=== PATIENT | male | born 1980 | race Caucasian/White ===

== ENCOUNTER 2017-11-16 17:32 | Observation (INO) ==
[2017-11-16 18:13] LABS: Basophils % 0.5 %; Eosinophils # 0.2 K/mcL (0.0-0.6); Eosinophils % 2.2 %; Hemoglobin 13.7 g/dL (12.9-16.9); Immature Granulocytes % 0.3 % (0-4); Lymphocytes # 2.1 K/mcL (0.6-4.6); Lymphocytes % 28.9 %; Mean Corpuscular HGB Conc 33.4 g/dL (31.6-35.5); Mean Corpuscular Hemoglobin 28.7 pg (28.0-33.3); Mean Platelet Volume 9.1 fL (9.4-12.4); Monocytes # 0.7 K/mcL (0.0-1.3); Monocytes % 9.3 %; Neutrophils # 4.4 K/mcL (1.6-8.9); Platelet Count 248 K/mcL (140-400); Red Blood Count 4.77 M/mcL (4.19-5.50); Red Cell Distribution Width 12.3 % (11.5-14.5); Segmented Neutrophils % 58.8 %
[2017-11-16 18:31] LABS: BUN/Creatinine Ratio 12 (6-26); Blood Urea Nitrogen 9 mg/dL (6-20); Calcium 9.3 mg/dL (8.6-10.3); Carbon Dioxide 26 mEq/L (23-29); Chloride 95 mEq/L (98-107); Glucose 102 mg/dL (70-105); Osmolality,Calculated 265 (280-300); Potassium 4.1 mEq/L (3.5-5.1); Sodium 128 mEq/L (136-145); eGFR For African Americans > 60 (> 60); eGFR For Non-African Americans > 60 (> 60)
--- NOTE | 2017-11-16 19:36 | Emergency Department Note ---
Disposition Clinical Impression: Near syncope Disposition: Admitted As Inpatient Condition: Good Referrals: Alina Liang MD [Primary Care Provider] - Forms: ED Satisfaction Letter, Work/School Release Time of Disposition: 19:42 General Adult HPI - General Chief complaint: ED General Medical Stated complaint: "woozy", numb/tingling extremities Time Seen by Provider: 11/16/17 19:21 Source: patient Limitations: no limitations Nursing Notes Reviewed: Yes - History of Present Illness HPI Narrative: 37-year-old male who comes in complaining of near-syncope. This is his third visit in [address] scan that was negative. I was told that he was dehydrated and was drinking lots of fluids. Denies any vomiting or diarrhea. He states he didn't know that he was dehydrated previously. Today he has near- syncope with some tingling in his arms. Pt Subjective Complaint: Near syncope tingling arms Onset (ago): day(s) Radiation: non-radiation Pain Severity: moderate Pain Scale: 2 Quality: aching Consistency: constant Associated symptoms: Reports: syncope (Near) - Related Data Previous Rx's Medication Instructions Recorded Ondansetron [Zofran] 4 mg PO Q8HR #10 tablet 12/30/15 Allergies Allergy/AdvReac Type Severity Reaction Status Date / Time methylprednisolone Allergy See Verified 11/16/17 17:43 Comments Nickel Allergy See Verified 11/16/17 17:43 Comments All systems ED: reviewed and negative except as stated. Constitutional: Denies: fever, chills, weakness, weight change Eyes: Denies: eye pain, eye discharge, vision change ENT ED: Denies: ear pain, throat pain, dental pain, hearing loss, epistaxis, congestion, dysphagia Cardiovascular: Reports: other (Lightheaded). Denies: chest pain, palpitations , dyspnea on exertion, edema, syncope Respiratory: Denies: cough, dyspnea, wheezes, hemoptysis, stridor Gastrointestinal: Denies: abdominal pain, nausea, vomiting, diarrhea, constipation, hematemesis, melena, hematochezia Genitourinary: Denies: urgency, dysuria, frequency, hematuria Musculoskeletal: Denies: back pain, neck pain, arthralgia, myalgia Integumentary: Denies: rash, abrasion, lesions Neurological: Reports: other (Near syncope). Denies: headache, weakness, numbness, paresthesias, confusion, abnormal gait, vertigo Psychiatric: Denies: anxiety, depression, suicidal thoughts, homicidal thoughts , auditory hallucinations, visual hallucinations Endocrine: Denies: fatigue Hematological/Lymphatic: Denies: easy bleeding, easy bruising Allergic/Immunologic: Denies: facial swelling, urticaria Past Medical History - Past Medical History Medical history: Reports: no medical history Psychiatric history: Reports: no psych history - Social History Smoking Status: Never smoker Smokeless Tobacco Status: No Alcohol use: Reports: none Drug use: Reports: none Physical Exam - General Limitations: no limitations General appearance: alert, in no apparent distress - Head Head exam: atraumatic, normocephalic, normal inspection - Eye Eye exam: Present: normal appearance, PERRL, EOMI - ENT ENT exam: normal exam, normal oropharynx, mucous membranes moist - Neck Neck exam: Present: normal inspection, full ROM, trachea midline - Chest Chest inspection: Present: normal inspection, symmetric chest wall rise - Respiratory Respiratory exam: Present: normal lung sounds bilaterally - Cardiovascular Cardiovascular exam: Present: regular rate, normal rhythm, normal heart sounds - Abdominal Exam Abdominal exam: Present: soft, Non-Tender. Absent: tenderness, distention, guarding, rebound, rigidity - Extremities Exam Extremities exam: Present: normal inspection, full ROM. Absent: tenderness, pedal edema - Expanded Lower Extremity Exam Neurovascular/Tendon exam: Absent: motor deficit, sensory deficit, tendon deficit Gait: observed and normal - Back Exam Back exam: Present: normal inspection, full ROM. Absent: tenderness - Neurological Exam Neurological exam: Present: alert, oriented X3 - Psychiatric Psychiatric exam: Present: normal affect, normal mood - Skin Skin exam: Present: warm, dry, intact Course - Reevaluation(s) Reevaluation #1: 37-year-old with his third visit for similar complaints of near syncope and syncope. He said some tingling in his arms. NIH stroke score is 0. CT scan previously was negative. He does show some hyponatremia. The hyponatremia may be related to hydration that he has been doing since he was told that he was dehydrated. We will admit for further evaluation. Time: 19:41 - Consultations Consultation #1: Discussed with , admit. Time: 19:41 Vital Signs Temperature 98.6 F 11/16/17 17:39 Pulse Rate 76 11/16/17 17:39 Respiratory Rate 16 11/16/17 17:39 Blood Pressure 147/93 11/16/17 17:39 O2 Sat by Pulse Oximetry 100 11/16/17 17:39 Temperature 98.6 F 11/16/17 17:39 Pulse Rate 84 11/16/17 19:50 Respiratory Rate 16 11/16/17 19:50 Blood Pressure 153/93 11/16/17 19:50 O2 Sat by Pulse Oximetry 99 11/16/17 19:50 Oxygen Delivery Oxygen Delivery Room Air Medical Decision Making - Lab Data Lab results reviewed: Yes I reviewed the patient's lab results. Result diagrams: 11/16/17 18:05 11/16/17 18:05 Lab Results 11/16/17 11/16/17 11/16/17 Range/Units 18:05 18:05 18:05 WBC 7.4 (4.3-11.1) K/mcL RBC 4.77 (4.19-5.50) M/mcL Hgb 13.7 (12.9-16.9) g/dL Hct 41.0 (37.5-50.1) % MCV 86.0 (83.0-100.0) fL MCH 28.7 (28.0-33.3) pg MCHC 33.4 (31.6-35.5) g/dL RDW 12.3 (11.5-14.5) % Plt Count 248 (140-400) K/mcL MPV 9.1 L (9.4-12.4) fL Immature Gran % 0.3 (0-4) % Seg Neutrophils % 58.8 % Lymphocytes % 28.9 % Monocytes % 9.3 % Eosinophils % 2.2 % Basophils % 0.5 % Neutrophils # 4.4 (1.6-8.9) K/mcL Lymphocytes # 2.1 (0.6-4.6) K/mcL Monocytes # 0.7 (0.0-1.3) K/mcL Eosinophils # 0.2 (0.0-0.6) K/mcL Basophils # 0.0 (0.0-0.2) K/mcL Sodium 128 L (136-145) mEq/L Potassium 4.1 (3.5-5.1) mEq/L Chloride 95 L (98-107) mEq/L Carbon Dioxide 26 (23-29) mEq/L BUN 9 (6-20) mg/dL Creatinine 0.75 (0.70-1.30) mg/dL Est GFR ( Amer) > 60 (> 60) Est GFR (Non-Af Amer) > 60 (> 60) BUN/Creatinine Ratio 12 (6-26) Glucose 102 (70-105) mg/dL Calculated Osmolality 265 L (280-300) Calcium 9.3 (8.6-10.3) mg/dL Troponin I < 0.03 (< 0.04) ng/mL - EKG Data EKG #1 EKG attestation: Yes I reviewed and interpreted this EKG. EKG shows normal: sinus rhythm Rate: normal Rhythm: NSR Interpretation: no acute changes
[2017-11-16 20:00] LABS: Amphetamine Screen,Urine Negative ng/mL (Cutoff=1000); Barbiturate Screen,Urine Negative ng/mL (Cutoff=200); Benzodiazepines Screen,Urine Negative ng/mL (Cutoff=200); Cannabinoid Screen,Urine Negative ng/mL (Cutoff = 50); Cocaine Screen,Urine Negative ng/mL (Cutoff= 300); Opiate Screen,Urine Negative ng/mL (Cutoff=300); Phencyclidine Screen,Urine Negative ng/mL (Cutoff=25)
[2017-11-16 20:00] LABS: Albumin 4.5 g/dL (3.5-5.7); Bilirubin,Direct 0.1 mg/dL (0.0-0.2)
[2017-11-16 20:06] LABS: Albumin/Globulin Ratio 2.3 (1.1-2.2); Total Protein 6.5 g/dL (6.4-8.9)
[2017-11-16 20:20] LABS: Bilirubin,Indirect 0.6 mg/dL (0.0-1.2); Bilirubin,Total 0.7 mg/dL (0.3-1.0)
[2017-11-16] MEDS ORDERED: Ondansetron 4 MG/2 ML VIAL IVP PRN (22:04)
[2017-11-16] MEDS ORDERED: Acetaminophen 325 MG TABLET PO PRN (22:04)
[2017-11-16] MEDS ORDERED: Naloxone 0.4 MG/ML INJ IVP PRN (22:04)
--- NOTE | 2017-11-16 23:39 | Internal Med History&Physical ---
Date of Encounter: 11/16/17 Time of Encounter: 20:00 Assessment and Plan (1) Syncope Current visit: Yes Status: Acute 1. Will monitor glucose for hypoglycemia, telemetry, serial troponins, and EKG' s. 2. Will order ECHO and Carotid Dopplers. 3. Further work-up if necessary, pending observation and above studies. Qualifiers: Syncope type: unspecified Qualified Code(s): R55 - Syncope and collapse (2) Hyponatremia Current visit: Yes Status: Acute 1. Likely due to polydipsia from excessive water intake (patient advised to drink plenty of fluids at last ER visits). 2. Recheck sodium level tonight and in morning. 3. Patient appears well hydrated. I advised him to drink normal fluids and not to push excessive water. May drink fluids with electrolytes. Based upon history, I do not suspect psychogenic polydipsia. Will monitor. (3) DVT prophylaxis Current visit: Yes Status: Acute 1. Heparin SQ. Internal Medicine - H&P: HPI Chief complaint: syncope Admitted From: Emergency Dept Plans for Post Hospital Care: Home History of present illness: Mr. Harrison is a 37 year old male who presents with complaints of 3 different episodes of syncope and near syncope in the last 3 days. He had a true syncopal event 3 days ago while at home. He was walking to the bathroom from his bedroom when he became lightheaded and dizzy and passed out. He came to ER and was evaluated and discharged home. Has felt that he was dehydrated and, and he was advised to drink plenty of fluids. Since then, he has had 2 more episodes where he had near syncopal events, but he did not formally pass out. Because of the recurrent episodes, he came to ER for evaluation. In the ER, evaluation was negative except for some hyponatremia. Because of 3 separate events within the last 3 days, he was admitted to the hospitalist service. Upon my assessment of the patient, he feels well and denies any complaints at the present time. His mother is present at bedside as well. He admits that he was drinking excessive water the last few days as advised. I suspect his hyponatremia secondary to polydipsia. He has no medical problems and tries to adhere to a healthy diet and lifestyle. He has had one prior episode of syncope several years ago related to dehydration from gastroenteritis. Otherwise, he's had no medical problems whatsoever. There is no family history of heart disease or arrhythmias. He denies any recent fevers, cough, congestion , vomiting, diarrhea, or dysuria. Past Med Surg Social Fam HX - Past Medical History Attestation: Yes The following information was validated with the patient. Source: patient, obtained from family Medical history: no medical history Psychiatric history: no psych history - Past Surgical History Surgical History: no surgical history - Social History Smoking Status: Never smoker Smokeless Tobacco Status: No Alcohol use: none Drug use: none Current living situation: Home Activity Level: Independent ambulation Recent Out of Country Travel Within the Last 8 Weeks: No - Family History Mother Adopted: [place]: Marilu Harrison Family Member Ethnicity: Non- Living Status: Still Living Age at : 62 Hx Family Cardiac Disorders: No Hx Family Respiratory Disorders: No Hx Family Cancer: Yes (basal cell carcinoma) Hx Family GI Disorders: No Hx Family Genitourinary Disorders: No Hx Family Endocrine Disorder: Yes (prediabetic) Hx Family Musculoskeletal Disorders: No Hx Family Neuromuscular Disorders: No Hx Family Neurologic Disorders: No Hx Family HEENT Disorders: No Hx Family Autoimmune Disorders: No Hx Family Reproductive Disorders: No Hx Family Psychosocial Disorders: No Hx Family Medical Disorders: No Father Living Status: Cause of : cancer Hx Family Cardiac Disorders: No Hx Family Cancer: Yes Hx Family Neurologic Disorders: No Internal Medicine - H&P: Meds Ondansetron [Zofran] 4 mg PO Q8HR #10 tablet 12/30/15 [Rx] 3 Allergy/AdvReac Type Severity Reaction Status Date / Time methylprednisolone Allergy See Verified 11/16/17 17:43 Comments Nickel Allergy See Verified 11/16/17 17:43 Comments - Constitutional Constitutional: no chills, no fever(s), no night sweats - EENT Eyes: no blurry vision, no change in vision Ears: no ear pain, no tinnitus Nose, mouth and throat: no nasal congestion, no sinus pressure, no sore throat - Cardiovascular Cardiovascular ROS IM: lightheadedness, syncope, no chest pain, no dyspnea, no dyspnea on exertion, no palpitations - Respiratory Respiratory: no cough, no dyspnea, no chest congestion, no excessive phlegm production - Gastrointestinal Gastrointestinal: no abdominal pain, no diarrhea, no hematemesis, no hematochezia, no melena, no nausea, no vomiting - Genitourinary Genitourinary ROS male: no dysuria, no flank pain, no hematuria - Musculoskeletal Musculoskeletal ROS IM: no back pain, no muscle cramps, no myalgias - Integumentary Integumentary IM: no rash, no jaundice - Neurological Neurological ROS: dizziness, no abnormal speech, no focal weakness, no frequent falls, no headache(s), no numbness, no weakness - Psychiatric Psychiatric: no anxiety, no depression - Endocrine Endocrine IM: polydipsia (as advised by ER staff), no cold intolerance, no heat intolerance, no polyphagia, no polyuria - Hematologic/Lymphatic Hematologic/Lymphatic: no easy bruising, no lymphadenopathy - Allergic/Immunologic Allergic/Immunologic: no wheezing, no GI upset with certain foods - Constitutional Vitals: Temp Pulse Resp BP Pulse Ox 98.4 F 87 16 123/75 97 11/16/17 20:55 11/16/17 20:55 11/16/17 20:55 11/16/17 20:55 11/16/17 20:55 General appearance: Present: cooperative, A&O X 3, pleasant, no acute distress, answers questions appropriately - Head Head exam: Present: atraumatic, normal inspection - Eye Eye exam: Present: EOMI, normal appearance, PERRL. Absent: scleral icterus Pupils: Present: normal accommodation - ENT ENT exam: Present: mucous membranes moist, normal exam, normal oropharynx - Neck Neck exam general surgery: Present: full ROM, supple. Absent: lymphadenopathy, tenderness, nuchal rigidity, thyromegaly - Expanded Neck Exam Neck exam: Absent: carotid bruit - Respiratory Respiratory exam: Present: CTAB. Absent: chest wall tenderness, rales, respiratory distress, rhonchi, wheezes - Cardiovascular Cardiovascular exam: Present: RRR, +S1, +S2. Absent: diastolic murmur, systolic murmur - GI/Abdominal GI/Abdominal exam: Present: normal bowel sounds, soft. Absent: guarding, hepatomegaly, mass, rebound, splenomegaly, tenderness - Extremities Exam Extremities exam: Present: full ROM, normal capillary refill, warm, radial pulses palpable and symmetrical. Absent: calf tenderness, tenderness - Back Exam Back exam: Present: normal inspection. Absent: CVA tenderness (L), CVA tenderness (R) - Neurological Exam Neurological exam: Present: alert, CN II-XII intact, oriented X3, no focal deficits, strengths equal and symetr throughout - Psychiatric Psychiatric exam: Present: normal affect, normal mood - Skin Skin exam: Present: dry, warm. Absent: rash Internal Med - H&P Results - Labs CBC & Chem 7: 11/16/17 18:05 11/16/17 18:05 - EKG Data -: EKG Interpreted by Myself EKG shows normal: sinus rhythm Rate: normal - EKG Data EKG comments: 11/16/17 23:49 NSR; no acute findings
[2017-11-17 00:36] LABS: BUN/Creatinine Ratio 9 (6-26); Blood Urea Nitrogen 7 mg/dL (6-20); Calcium 9.2 mg/dL (8.6-10.3); Carbon Dioxide 27 mEq/L (23-29); Chloride 100 mEq/L (98-107); Glucose 127 mg/dL (70-105); Osmolality,Calculated 278 (280-300); Potassium 3.6 mEq/L (3.5-5.1); Sodium 134 mEq/L (136-145); eGFR For African Americans > 60 (> 60); eGFR For Non-African Americans > 60 (> 60)
[2017-11-17] MEDS: *HR* Heparin 5,000 UNIT/ML VIAL SQ SCH ×2 (00:50→07:57)
[2017-11-17 06:05] LABS: Basophils % 0.5 %; Eosinophils # 0.2 K/mcL (0.0-0.6); Eosinophils % 2.9 %; Hematocrit 42.4 % (37.5-50.1); Hemoglobin 14.2 g/dL (12.9-16.9); Immature Granulocytes % 0.2 % (0-4); Lymphocytes # 1.8 K/mcL (0.6-4.6); Lymphocytes % 32.1 %; Mean Corpuscular HGB Conc 33.5 g/dL (31.6-35.5); Mean Corpuscular Hemoglobin 28.5 pg (28.0-33.3); Mean Corpuscular Volume 85.1 fL (83.0-100.0); Mean Platelet Volume 9.3 fL (9.4-12.4); Monocytes # 0.4 K/mcL (0.0-1.3); Monocytes % 7.7 %; Neutrophils # 3.1 K/mcL (1.6-8.9); Platelet Count 260 K/mcL (140-400); Red Blood Count 4.98 M/mcL (4.19-5.50); Red Cell Distribution Width 12.5 % (11.5-14.5); Segmented Neutrophils % 56.6 %
[2017-11-17 06:12] LABS: Alanine Aminotransferase 21 Units/L (7-52); Albumin 4.4 g/dL (3.5-5.7); Albumin/Globulin Ratio 2.1 (1.1-2.2); Alkaline Phosphatase 73 Units/L (34-104); Aspartate Amino Transferase 15 Units/L (13-39); BUN/Creatinine Ratio 11 (6-26); Blood Urea Nitrogen 8 mg/dL (6-20); Calcium 9.2 mg/dL (8.6-10.3); Carbon Dioxide 25 mEq/L (23-29); Chloride 106 mEq/L (98-107); Chol/HDL Ratio 2.2 (0-4.9); Cholesterol 168 mg/dL (< 200); Globulin 2.1 g/dL (2.4-3.5); Glucose 102 mg/dL (70-105); HDL Cholesterol 77 mg/dL (40-59); LDL Cholesterol,Calculated 84 mg/dL (0-99); Osmolality,Calculated 283 (280-300); Potassium 4.1 mEq/L (3.5-5.1); Sodium 137 mEq/L (136-145); Total Protein 6.5 g/dL (6.4-8.9); Triglycerides 35 mg/dL (< 150); eGFR For African Americans > 60 (> 60); eGFR For Non-African Americans > 60 (> 60)
--- NOTE | 2017-11-17 08:24 | Internal Med Progress Note ---
Date of Encounter: 11/17/17 Time of Encounter: 08:19 - Assessment and plan (1) Syncope Current Visit: Yes Status: Acute Assessment and plan: patient reports syncopal episode 4 days prior to presentation (says he was standing in bathroom and next thing he knew he was laying on the floor). Has had several episodes of near syncope since that time. Was seen in the ED 3 times in 4 days with initial same sx's. 11/14/[address] non-acute. No evidence of orthostatic BP. Does not appear to be dehydrated. Etiology unknown at this time, possible underlying arrhythmia as patient reports similar symptoms in the past and was told he had an irregular/fast heart rate. No evidence of arrhythmia on telemetry review. Echo, carotid dopplers and brain MRI pending ( patient reported bilateral upper extremity paresthesias). Will need holetr monitor at discharge Qualifiers: Syncope type: unspecified Qualified Code(s): R55 - Syncope and collapse (2) Hyponatremia Current Visit: Yes Status: Acute Assessment and plan: mild, Na 128 on arrival. Likely due to polydipsia from excessive water intake ( patient was advised to drink plenty of fluids at last ER visits). Na normalized with decreasing water intake. (3) DVT prophylaxis Current Visit: Yes Status: Acute Assessment and plan: heparin - Subjective Interval history: Seen and examined at bedside. Patient is new to me, information obtained from chart review and patient report. Says he feels tired, otherwise has no complaints. No further syncopal or near syncopal events overnight. He tells me this is his fourth episode of syncope/near syncope since the end of 2015. Says he has been told in the past he has irregular/past heart rate and follows with cardiology. No lightheadedness, dizziness, vision changes or headaches. No palpitations or paresthesia. - Constitutional Vitals: Temp Pulse Resp BP Pulse Ox 98.2 F 64 15 116/78 97 11/17/17 06:57 11/17/17 06:57 11/17/17 06:57 11/17/17 08:03 11/17/17 06:57 General appearance: Present: cooperative, A&O X 3, pleasant, no acute distress, answers questions appropriately - Head Head exam: Present: atraumatic, normocephalic - Eye Eye exam: Present: PERRL, conjuntiva pink, sclera anicteric Pupils: Present: PERRL - Neck Neck exam general surgery: Present: supple, trachea midline. Absent: lymphadenopathy - Respiratory Respiratory exam: Present: CTAB. Absent: accessory muscle use, rales, rhonchi, wheezes - Cardiovascular Cardiovascular exam: Present: RRR, +S1, +S2. Absent: diastolic murmur, gallop, rubs, systolic murmur - GI/Abdominal GI/Abdominal exam: Present: normal bowel sounds, soft, no peritoneal signs. Absent: distended, tenderness - Extremities Exam Extremities exam: Present: warm, radial pulses palpable and symmetrical. Absent : calf tenderness, cyanotic, pedal edema - Neurological Exam Neurological exam: Present: CN II-XII intact, oriented X3, no focal deficits. Absent: pronater drift, facial droop, speech deficit - Skin Skin exam: Present: dry, intact Internal Medicine: Result - Labs CBC & Chem 7: 11/17/17 05:45 11/17/17 05:45 Labs: Short CBC 11/17/17 Range/Units 05:45 WBC 5.6 (4.3-11.1) K/mcL Hgb 14.2 (12.9-16.9) g/dL Hct 42.4 (37.5-50.1) % Plt Count 260 (140-400) K/mcL Neutrophils # 3.1 (1.6-8.9) K/mcL BMP 11/16/17 11/17/17 23:49 05:45 Sodium 134 L 137 Potassium 3.6 4.1 Chloride 100 106 Carbon Dioxide 27 25 BUN 7 8 Creatinine 0.78 0.74 Glucose 127 H 102 Calcium 9.2 9.2 Cardiac Enzymes 11/16/17 11/17/17 Range/Units 23:49 05:45 Troponin I < 0.03 < 0.03 (< 0.04) ng/mL Liver Function 11/17/17 Range/Units 05:45 Total Bilirubin 1.0 (0.3-1.0) mg/dL AST 15 (13-39) Units/L ALT 21 (7-52) Units/L Alkaline Phosphatase 73 (34-104) Units/L Albumin 4.4 (3.5-5.7) g/dL Consult Discharge Plan - Plan Referrals: Alina Liang MD [Primary Care Provider] -
[2017-11-17 11:13] VITALS: BP 119/74
--- NOTE | 2017-11-17 13:36 | Discharge Summary ---
Date of Encounter: 10/28/17 Time of Encounter: 13:34 - Discharge Diagnosis (1) Syncope Priority: Primary Status: Resolved Comments: patient reports syncopal episode 4 days prior to presentation (says he was standing in bathroom and next thing he knew he was laying on the floor). Has had several episodes of near syncope since that time. Was seen in the ED 3 times in 4 days with initial same sx's. 11/14/[address] non-acute. No evidence of orthostatic BP. Does not appear to be dehydrated. Etiology unknown at this time, possible underlying arrhythmia as patient reports similar symptoms in the past and was told he had an irregular/fast heart rate. No evidence of arrhythmia on telemetry review. Echo, carotid dopplers and brain MRI unremarkable. No sx recurrence while . inpatient and patient requested discharge home. Holter monitor applied at discharge. Patient stated he had follow-up with outpatient [facility] on 11/18/2017 Qualifiers: Syncope type: unspecified Qualified Code(s): R55 - Syncope and collapse (2) Hyponatremia Priority: Primary Status: Resolved Comments: Na 128 on arrival. Likely due to polydipsia from excessive water intake ( patient was advised to drink plenty of fluids at last ER visits). Na normalized with decreasing water intake. - Discharge Medications Home Medications: Multivitamin [One Daily Essential] 1 tab PO DAILY 11/17/17 [History] Allergies/Adverse Reactions: 3 Allergy/AdvReac Type Severity Reaction Status Date / Time methylprednisolone Allergy See Verified 11/16/17 17:43 Comments Nickel Allergy See Verified 11/16/17 17:43 Comments Procedures/tests Complete & Pending: Procedures Performed prior 72 hours Category Date Time Status MR head/brain wo con [MR] Routine MRI 11/17/17 08:25 Completed ECG 12 lead ECG [ECG] AM 0600 Y 11/17/17 06:00 Ordered ECG 48 holter monitor setup [ECG] Routine Y 11/17/17 08:26 Ordered EV carotid duplex imaging BI Routine Y 11/17/17 10:30 Completed EV echocardiogram Routine Y 11/16/17 22:06 Completed Date of admission: 11/16/17 20:00 Primary care physician: Alina Liang, Discharging clinician: Vibha Vieira Anticipated date of discharge: 11/17/17 - Patient Status Disposition: Home, Self-Care Condition: Good Overall status at discharge: patient is back to baseline - Discharge Instructions Instructions: Holter Monitoring (DC), Syncope (DC) Follow Up With: Rosa M Nelson CNP [Advanced Practice Nurse] - 11/18/17 10:00 am Additional Instructions: Go to nearest emergency room for new or worsening symptoms. Wear Holter monitor and maintain per cardio instructions. Cardiology office will call you in the next few days with a followup appt time & date. - Diet and Activity Activity: increase activity as tolerated Diet: advance to your usual diet Interval History: All testing came back unremarkable and patient requested discharge home. Advised to return to ER if sx's recurred. See 11/17/2017 progress note for further details. Hospital course: see assessment and plan for hospital details - Time Spent with Patient Total time spent providing and/or coordinating discharge services: - Constitutional Vitals: Temp Pulse Resp BP Pulse Ox 98.6 F 72 18 119/74 97 11/17/17 11:13 11/17/17 11:13 11/17/17 11:13 11/17/17 11:13 11/17/17 11:13 General appearance: Present: cooperative, A&O X 3, pleasant, no acute distress, answers questions appropriately - Head Head exam: Present: atraumatic, normocephalic - Eye Eye exam: Present: PERRL, conjuntiva pink, sclera anicteric Pupils: Present: PERRL - Neck Neck exam general surgery: Present: supple, trachea midline. Absent: lymphadenopathy - Respiratory Respiratory exam: Present: CTAB. Absent: accessory muscle use, rales, rhonchi, wheezes - Cardiovascular Cardiovascular exam: Present: RRR, +S1, +S2. Absent: diastolic murmur, gallop, rubs, systolic murmur - GI/Abdominal GI/Abdominal exam: Present: normal bowel sounds, soft, no peritoneal signs. Absent: distended, tenderness - Extremities Exam Extremities exam: Present: warm, radial pulses palpable and symmetrical. Absent : calf tenderness, cyanotic, pedal edema - Neurological Exam Neurological exam: Present: CN II-XII intact, oriented X3, no focal deficits. Absent: pronater drift, facial droop, speech deficit - Skin Skin exam: Present: dry, intact
--- NOTE | 2017-11-19 07:55 | Electrocardiograph Report ---
[place] [id number] Test Date: 2017-11-16 Pat Name: Jarad Harrison Department: 102 Room: [facility] Gender: M Inspector Assembly: Jasbir : 1980 Requested By: Keily Madera Order Number: [id number] Reading MD: Sean Castro MD Measurements Intervals [place] Rate: 71 P: 70 HI: 141 QRS: 75 QRSD: 102 T: 49 QT: 362 QTc: 385 Interpretive Statements SINUS RHYTHM Electronically Signed On 11-19-2017 6:49:04 EST by Sean Castro MD
== END 2017-11-17 15:47 | disposition home or self-care (01) ==
LOC: 3NENU 17:32 → EMEROO 17:32 → 3NENU 20:45
PROVIDERS: ADMIT Pediatrics; ATTEND Hospitalist